=== PATIENT | female | born 1980 | race Hispanic/Latino ===

== ENCOUNTER 2018-05-30 18:59 | Emergency (ER) | payer BC ==
[~2018-05-30] VITALS: Ht 157.5 cm; Wt 73.0 kg
--- OUTSIDE RECORDS SUMMARY | 2018-05-30 19:00 | XMS REPORT | Clinical Summary ---
Author Author [facility] Organization [facility] Address Unknown Phone Unavailable Care Team Providers Care Clerical Manager Name Role Phone Asked, No Pcp PCP Unavailable Allergies Comments Active Allergy Reactions Severity Noted Date Sulfamethoxazole-Trimetho Hives High 10/16/2016 prim Glucosamine 12/17/2016 Sulfasalazine 02/25/2014 Medications End Date Status Medication Sig Dispensed Refills Start Date Active acetaminophen (TYLENOL) Take 500 mg 0 500 MG tablet by mouth nightly as needed for mild pain. Active Problems Problem Noted Date Hypothyroidism 10/16/2016 High-risk in second trimester 10/16/2016 Elderly multigravida in second trimester 10/16/2016 Social History Date Tobacco Use Types Packs/Day Years Used Never Smoker Tobacco Cessation: Counseling Given: No Alcohol Use Drinks/Week oz/Week Comments No Sex Assigned at Date Recorded Not on file Industry Job Start Date Occupation Not on file Not on file Not on file Travel End Travel History Travel Start No recent travel history available. Last Filed Vital Signs Not on file Plan of Treatment Health Maintenance Due Date Last Done Comments CERVICAL CANCER SCREENING 06/16/2014 06/16/2013 INFLUENZA VACCINE 12/11/2017 Results Not on fileafter 05/29/2017 Insurance Payer Benefit Subscriber ID Type Phone Address Plan / Group [facility] xxxxxxxxx HMO PLAN [facility] xxxxxxxxx HMO/PPO THCARE CHOICE/CHO ICE + [facility] [id number]) [place] [address] Advance Directives Patient has advance care planning documents on file. For more information, agusto allen contact: Evan Costa28 [facility] [place] [address]
--- OUTSIDE RECORDS SUMMARY | 2018-05-30 19:01 | XMS REPORT | Clinical Summary ---
Author Author [facility] Address Unknown Phone Unavailable Care Team Providers Care Foundry Molder Name Role Phone Petty Solo PCP Unavailable Allergies Comments Active Allergy Reactions Severity Noted Date Sulfa (Sulfonamide 02/25/2014 Antibiotics) Medications End Date Status Medication Sig Dispensed Refills Start Date Active acetaminophen (TYLENOL) Take 650 mg 0 325 MG tablet by mouth every 6 (six) hours as needed for Pain. Active HYDROcodone-acetaminophen 0 (NORCO 10-325) 10-325 mg 4 per tablet Active LEVOTHYROXINE SODIUM Take by 0 (SYNTHROID ORAL) mouth. Active Problems Not on file Social History Date Tobacco Use Types Packs/Day Years Used Never Smoker Alcohol Use Drinks/Week oz/Week Comments No Sex Assigned at Date Recorded Not on file Industry Job Start Date Occupation Not on file Not on file Not on file Travel End Travel History Travel Start No recent travel history available. Last Filed Vital Signs Not on file Plan of Treatment Not on file Results Not on fileafter 05/29/2017 Insurance Payer Benefit Subscriber ID Type Phone Address Plan / Group [employer] PPO xxxxxxxxxxxx PPO [phone] [address] [place] [address] CHOICE
== END 2018-05-30 20:05 | disposition home or self-care (01) ==
LOC: FSED 18:59
DX: R50.9 Fever, unspecified (principal); R05 Cough; J11.1 Influenza due to unidentified influenza virus with other respiratory manifestations; J31.0 Chronic rhinitis
CPT/HCPCS: 87400; 99282

== ENCOUNTER 2018-05-31 22:31 | Emergency (ER) | payer BC ==
[~2018-05-31] VITALS: Ht 157.5 cm; Wt 73.0 kg
--- OUTSIDE RECORDS SUMMARY | 2018-05-31 22:34 | XMS REPORT | Clinical Summary ---
Author Author [facility] Organization [facility] Address Unknown Phone Unavailable Care Team Providers Care Knocker Out Name Role Phone Asked, No Pcp PCP [...] INFLUENZA VACCINE 12/11/2017 Results Not on fileafter 05/30/2017 Insurance Payer Benefit Subscriber ID Type Phone Address Plan / Group [facility] xxxxxxxxx HMO PLAN [facility] xxxxxxxxx HMO/PPO THCARE CHOICE/CHO ICE + [facility] [employer] [facility] [facility] 1980 [id number]) [place] [address] Advance Directives Patient has advance care planning documents on file. For more information, agusto allen contact: Evan Costa45 [place] [address]
--- OUTSIDE RECORDS SUMMARY | 2018-05-31 22:34 | XMS REPORT | Clinical Summary ---
Author Author [facility] Address Unknown Phone Unavailable Care Team Providers Care Book Coverer Name Role Phone Petty Solo PCP Unavailable [...] Not on file Results Not on fileafter 05/30/2017 Insurance Payer Benefit Subscriber ID Type Phone Address Plan / Group [employer] BC[employer] PPO xxxxxxxxxxxx PPO [phone] [address] [place] [address] CHOICE
[2018-05-31] MEDS ORDERED: ONDANSETRON HCL 4 MG ORAL DISINTEGRATING TAB PO ONE (22:45)
== END 2018-05-31 23:15 | disposition home or self-care (01) ==
LOC: FSED 22:31
DX: R11.2 Nausea with vomiting, unspecified (principal); B34.9 Viral infection, unspecified
CPT/HCPCS: 99282

== ENCOUNTER 2018-08-27 18:54 | Emergency (ER) | payer BC ==
[~2018-08-27] VITALS: Ht 157.5 cm; Wt 71.8 kg
--- OUTSIDE RECORDS SUMMARY | 2018-08-27 19:00 | XMS REPORT | Clinical Summary ---
Author Author [facility] Address Unknown Phone Unavailable Care Team Providers Care Hospice Social Worker Name Role Phone Petty Solo PCP Unavailable [...] Not on file Results Not on fileafter 08/26/2017 Insurance Payer Benefit Subscriber ID Type Phone Address Plan / Group [employer] BC[employer] PPO xxxxxxxxxxxx PPO [phone] [address] [place] [address] CHOICE
--- OUTSIDE RECORDS SUMMARY | 2018-08-27 19:00 | XMS REPORT | Clinical Summary ---
Author Author [facility] Address Unknown Phone Unavailable Care Team Providers Care Life Skills Coach Name Role Phone Asked, No Pcp PCP [...] CERVICAL CANCER SCREENING 06/16/2014 06/16/2013 INFLUENZA VACCINE 12/11/2018 Results Not on fileafter 08/26/2017 Insurance Payer Benefit Subscriber ID Type Phone Address Plan / Group [facility] xxxxxxxxx HMO PLAN [facility] xxxxxxxxx HMO/PPO THCARE CHOICE/CHO ICE + [facility] [employer] [facility] [facility] 1980 [id number] ([place]) [place] [address] Advance Directives Patient has advance care planning documents on file. For more information, agusto allen contact: Eavn Costa89 [facility] [place] [address]
[2018-08-28 01:00] VITALS: BP 118/86
== END 2018-08-27 20:10 | disposition home or self-care (01) ==
LOC: FSED 18:54
DX: R05 Cough (principal); R11.0 Nausea; J01.00 Acute maxillary sinusitis, unspecified; R10.84 Generalized abdominal pain
CPT/HCPCS: 83518; 87400

== ENCOUNTER 2019-06-11 00:29 | Emergency (ER) | payer BC ==
[~2019-06-11] VITALS: Ht 157.5 cm; Wt 71.7 kg
[2019-06-11] MEDS ORDERED: NAPROSYN500 MG PO (01:02)
[2019-06-11] MEDS ORDERED: VENTOLIN HFA18 GM PO (01:02)
[2019-06-11] MEDS ORDERED: TESSALON PERLE100 MG PO (01:18)
== END 2019-06-11 01:40 | disposition home or self-care (01) ==
LOC: FSED 00:29
DX: R05 Cough (principal); J02.9 Acute pharyngitis, unspecified; I10 Essential (primary) hypertension
CPT/HCPCS: 83518; 87400; 99283

== ENCOUNTER 2019-07-22 19:06 | Emergency (ER) | payer BC ==
[~2019-07-22] VITALS: Ht 157.5 cm; Wt 70.5 kg
[~2019-07-22 19:06] MED LIST: NAPROSYN500 MG PO; TESSALON PERLE100 MG PO; VENTOLIN HFA18 GM PO
[2019-07-22] MEDS ORDERED: AUGMENTIN 875-1 EACH PO (20:30)
[2019-07-22] MEDS ORDERED: TESSALON PERLE100 MG PO (20:30)
[2019-07-22] MEDS ORDERED: PROAIR HFA INH8.5 GM INH (20:30)
[2019-07-22] MEDS ORDERED: ZOFRAN4 MG PO (20:36)
[2019-07-22] MEDS ORDERED: IBUPROFEN 600 MG TAB PO STA (20:46)
[2019-07-23 00:59] VITALS: BP 151/89
== END 2019-07-22 20:50 | disposition home or self-care (01) ==
LOC: FSED 19:06
DX: J00 Acute nasopharyngitis [common cold] (principal); H66.91 Otitis media, unspecified, right ear
CPT/HCPCS: 87400

== ENCOUNTER 2019-09-01 22:40 | Emergency (ER) | payer BC ==
[~2019-09-01] VITALS: Ht 157.5 cm; Wt 70.3 kg
[~2019-09-01 22:40] MED LIST changes: +AUGMENTIN 875-1 EACH PO; +PEPCID20 MG PO; +PROAIR HFA INH8.5 GM INH; +ZOFRAN4 MG PO
--- OUTSIDE RECORDS SUMMARY | 2019-09-01 22:42 | XMS REPORT ---
Author Author [facility] Address Unknown Phone Unavailable Care Team Providers Care Set Up Mechanic Stamping Machines Name Role Phone NO, PCP PP Unavailable Payers Payer Name Policy Type Policy Number Effective Date Expiration Date [employer] [place] [id number] 2018 00:00:00 [employer] [place] [id number] 2018 00:00:00 [employer] [place] [id number] 2018 00:00:00 [employer] [place] [id number] 2018 00:00:00 [employer] [place] [id number] 2018 00:00:00 Problems This patient has no known problems. Allergies, Adverse Reactions, Alerts Allergy Name Allergy Type Status Severity Reaction(s) Onset Date Inactive Date Treating Clinician Comments Sulfamethoxazole Allergy to Substance Active Unknown 2018-08-27 00:00:00 Trimethoprim Allergy to Substance Active Unknown 2018-08-27 00:00:00 Sulfa (Sulfonamide Antibiotics) Allergy to Substance Active Moderate RASH 2018-05-30 00:00:00 Medications Ordered Medication Name Filled Medication Name Start Date Stop Date Current Medication? Ordering Clinician Indication Dosage Frequency Signature (SIG) Comments Components Famotidine (Pepcid) 20 Mg Tablet Famotidine (Pepcid) 20 Mg Tablet 2019-07-31 00:00:00 Yes Zahraa Vickers Md 20 Twice A Day Albuterol Sulfate (Proair Hfa Inhaler*) 8.5 Gm Inh Albuterol Sulfate (Proair Hfa Inhaler*) 8.5 Gm Inh 2019-07-22 00:00:00 Yes Ramon Mccormick Md 1 Every 6 Hours as needed for Cough Amoxicillin/Potassium Clav (Augmentin 875-125 Tablet) 1 Each Tablet Amoxicillin/Potassium Clav (Augmentin 875-125 Tablet) 1 Each Tablet 2019-07-22 00:00:00 Yes Ramon Mccormick Md 1 Twice A Day Benzonatate (Tessalon Perle) 100 Mg Capsule Benzonatate (Tessalon Perle) 100 Mg Capsule 2019-07-22 00:00:00 Yes Ramon Mccormick Md 100 Every 8 Hours Ondansetron Hcl (Zofran*) 4 Mg Tablet Ondansetron Hcl (Zofran*) 4 Mg Tablet 2019-07-22 00:00:00 Yes Ramon Mccormick Md 4 Every 6 Hours Albuterol Sulfate (Ventolin Hfa) 18 Gm Hfa.aer.ad Albuterol Sulfate (Ventolin Hfa) 18 Gm Hfa.aer.ad 2019-06-11 00:00:00 Yes Chadd Hall Md 2 Four Times Daily as needed for Cough Benzonatate (Tessalon Perle) 100 Mg Capsule Benzonatate (Tessalon Perle) 100 Mg Capsule 2019-06-11 00:00:00 Yes Chadd Hall Md 100 Three Times A Day as needed for Cough Naproxen (Naprosyn) 500 Mg Tablet Naproxen (Naprosyn) 500 Mg Tablet 2019-06-11 00:00:00 Yes Chadd Hall Md 500 Twice A Day as needed for Pain, Fever Encounters Start Date/Time End Date/Time Encounter Type Admission Type Attending Clinicians Care Facility Care Department Encounter ID 2019-07-31 11:39:2019-07-31 12:36:00 Departed Emergency Room [facility] [id number] 2019-07-22 19:06:00 2019-07-22 20:50:00 Departed Emergency Room [facility] [id number] 2019-06-11 00:29:00 2019-06-11 01:40:00 Departed Emergency Room [facility] [id number] 2018-08-27 18:54:00 2018-08-27 20:10:00 Departed Emergency Room [facility] [id number] 2018-05-31 22:31:00 2018-05-31 23:15:00 Departed Emergency Room [facility] [id number] 2018-05-30 18:59:00 2018-05-30 20:05:00 Departed Emergency Room [facility] [id number]
[2019-09-01] MEDS ORDERED: AMOXICILLIN/CLAVULANATE K 875 MG TAB PO STA (23:27)
[2019-09-01] MEDS ORDERED: HYDROCODONE/APAP 5MG-325MG TAB PO ONE (23:30)
[2019-09-01] MEDS ORDERED: HYDROCODONE/APAP 5MG-325MG TAB ONE (23:32)
[2019-09-01] MEDS ORDERED: AMOXICILLIN/CLAVULANATE K 875 MG TAB ONE (23:32)
[2019-09-01] MEDS ORDERED: AMOXICILLIN500 MG PO (23:45)
[2019-09-01] MEDS ORDERED: TYLENOL WITH C1 EACH PO (23:46)
== END 2019-09-01 23:57 | disposition home or self-care (01) ==
LOC: FSED 22:40
DX: K08.89 Other specified disorders of teeth and supporting structures (principal); K02.9 Dental caries, unspecified; Z33.1 Pregnant state, incidental
CPT/HCPCS: 99283

== ENCOUNTER 2022-02-03 17:50 | Emergency (ER) | payer OTHER ==
[~2022-02-03] VITALS: Ht 157.5 cm; Wt 70.3 kg
[~2022-02-03 17:50] MED LIST changes: +AMOXICILLIN500 MG PO; +TYLENOL WITH C1 EACH PO
[2022-02-03] MEDS ORDERED: KETOROLAC TROMETHAMINE 60 MG/2 ML VIAL IM ONE (18:30)
[2022-02-03] MEDS ORDERED: KETOROLAC TROMETHAMINE 30 MG/ML VIAL ONE (18:48)
[2022-02-03] MEDS ORDERED: IBUPROFEN600 MG PO (18:53)
== END 2022-02-03 19:00 | disposition home or self-care (01) ==
LOC: FSED 18:07
DX: S90.112A Contusion of left great toe without damage to nail, initial encounter (principal); W22.09XA Striking against other stationary object, initial encounter; Y93.01 Activity, walking, marching and hiking; Y92.89 Other specified places as the place of occurrence of the external cause
CPT/HCPCS: 73630; 99282; J1885